=== PATIENT | male | born 1995 | race Caucasian/White ===

== ENCOUNTER 2024-04-14 20:02 | Emergency (ER) | payer BC, SELFPAY ==
[2024-04-14 20:12] VITALS: BP 102/86; PULSE 127; TEMP 37.6; O2SAT 95; BMI 47.2
--- NOTE | 2024-04-14 20:18 | ED_ITS ---
HPI - URI/Sore Throat General Chief Complaint: Upper Respiratory Infection Stated Complaint: Upper Respiratory Infection Time Seen by Provider: 04/14/24 20:13 Source: patient Limitations: no limitations History of Present Illness HPI Narrative: ill for past week with cough. Was seen at Urgent care and diagnosed with pneumonia and prescribed Augmentin. States she is still short of breath with exertion and has a fever. Does not smoke cigarettes. No nausea or vomiting or chest pain Related Data Allergies Allergy/AdvReac Type Severity Reaction Status Date / Time No Known Drug Allergies Allergy Verified 04/14/24 20:12 Review of Systems ROS Status of ROS 10 or more systems reviewed and unremark able except as noted in history and below PFSH PFSH Social History Little interest or pleasure in doing things: not at all Feeling down, depressed, or hopeless: not at all Exam Constitutional Vital Signs, click to edit/add: Last Vital Signs Temp 99.7 F 04/14/24 20:12 Pulse 121 H 04/14/24 20:56 Resp 20 04/14/24 20:56 BP 102/86 04/14/24 20:12 Pulse Ox 98 04/14/24 20:56 O2 Del Method Room Air 04/14/24 20:56 Common normals: no apparent distress, average body habitus, oriented x3, no limitations, healthy appearing, alert and well nourished [facility] Common normals: normocephalic and head/scalp atraumatic Eye Common normals: PERRL and EOMs intact bilaterally Respiratory Other: faint wheeze left chest Cardio Common normals: S1 normal heart sound and S2 normal heart sound Rate: tachycardic GI Common normals: Normal to inspection, nondistended, normoactive bowel sounds present, soft to palpation and non-tender Extremity Common normals: normal to inspection and full ROM Neuro Common normals: oriented x3, CN's II-XII intact bilaterally, moves all extrem ities and no focal motor deficits Psych Appearance: grossly normal Course Vital Signs Vital signs: Vital Signs Temperature 99.7 F 04/14/24 20:12 Pulse Rate 127 H 04/14/24 20:12 Respiratory Rate 18 04/14/24 20:12 Blood Pressure 102/86 04/14/24 20:12 Pulse Oximetry 95 04/14/24 20:12 Oxygen Delivery Method Room Air 04/14/24 20:12 Temperature 99.7 F 04/14/24 20:12 Pulse Rate 121 H 04/14/24 20:56 Respiratory Rate 20 04/14/24 20:56 Blood Pressure 102/86 04/14/24 20:12 Pulse Oximetry 98 04/14/24 20:56 Oxygen Delivery Method Room Air 04/14/24 20:56 MDM - URI/Sore Throat MDM Narrative Medical decision making narrative: patient states recently seen at urgent care and diagnosed with pneumonia and prescribed Augmentin. states she still has been experiencing fever and dyspnea with exertion. RA pulse ox 98%. has mild wheeze on exam. cxray clear. low grade temp. COVID 19 and influenza neg. Patient treated with albuterol NMT and solumedrol. Feeling better. discharged home with prednisone and albuterol inhaler and advised to followup with her doctor for recheck Lab Data Labs: Lab Results 04/14/24 04/14/24 Range/Units 20:30 22:03 WBC 9.4 (4.0-11.0) 10^3/uL RBC 4.64 L (4.70-6.10) 10^6/uL Hgb 12.2 L (14.0-18.0) g/dL Hct 38.6 L (42.0-54.0) % MCV 83.2 (80.0-94.0) fL MCH 26.3 (25.9-34.0) pg MCHC 31.6 (29.9-35.2) g/dL RDW 14.1 (11.0-15.0) % Plt Count 355 (150-450) 10^3/uL MPV 8.6 L (9.5-13.5) fL Neut % (Auto) 67.7 (43.0-75.0) % Lymph % (Auto) 17.2 L (20.5-60.0) % [place] % (Auto) 8.0 (1.7-12.0) % Eos % (Auto) 6.4 (0.9-7.0) % Baso % (Auto) 0.5 (0.2-2.0) % Neut # (Auto) 6.4 (1.4-6.5) 10^3/uL Lymph # (Auto) 1.6 (1.2-3.8) 10^3/uL [place] # (Auto) 0.8 (0.3-0.8) 10^3/uL Eos # (Auto) 0.6 (0.0-0.7) 10^3/uL Baso # (Auto) 0.1 (0.0-0.1) 10^3/uL Abs Immat Gran (auto) 0.02 (0.00-0.03) 10^3/uL Imm/Tot Granulo (auto) 0.2 (0.0-0.5) % Sodium 141 (136-145) mmol/L Potassium 3.5 (3.5-5.1) mmol/L Chloride 103 (98-107) mmol/L Carbon Dioxide 24.7 (21.0-32.0) mmol/L Anion Gap 16.8 BUN 11.0 (7.0-18.0) mg/dL Creatinine 0.99 (0.70-1.30) mg/dL Est GFR ( Amer) >60 (>=60 mL/min/1.73m^2) Est GFR (Non-Af Amer) >60 (>=60 mL/min/1.73m^2) BUN/Creatinine Ratio 11.1 Glucose 112 H (74-106) mg/dL Calcium 9.4 (8.5-10.1) mg/dL Influenza Type A Ag Negative Influenza Type B Ag Negative SARS-CoV-2 Ag (CV2AG) Negative (NEGATIVE) Imaging Data Chest x-ray: Radiologist's impression: ITS Impressions Chest X-Ray 04/14/24 20:18 IMPRESSION: No acute cardiopulmonary findings. Electronically authenticated by: ANGEL MCNAMARA Date: 04/14/2024 21:41 Discharge Plan Discharge Chief Complaint: Upper Respiratory Infection Clinical Impression: Upper respiratory infection, RAD (reactive airway disease) Patient Disposition: Home, Self-Care Print Language: [place] Instructions: Upper Respiratory Infection (ED), Wheezing (ED) Additional Instructions: follow up with your family doctor next week for recheck Referrals: Physician,Non-Staff, MD [Primary Care Provider] - 1 week
--- NOTE | 2024-04-14 20:18 | XR_ITS ---
The [address] [address] Patient Name: FREDDY BRODY MRN: [id number] date: 1995 Sex: M Assigned Patient Location: ER Current Patient Location: ER Accession/Order Number: [id number] Exam Date: 04/14/2024 20:30 Report Date: 04/14/2024 21:41 At the request of: ASHER GARCIA Procedure: XR chest 2V EXAM: XR chest 2V , 04/14/2024 HISTORY: cough COMPARISON: None. TECHNIQUE: X-rays of the chest, frontal and lateral views in upright position. FINDINGS: Cardiac silhouette within normal limits. The lungs and costophrenic angles are clear. No hilar or mediastinal lymph node. No acute osseous findings. XR/XR chest 2V IMPRESSION: No acute cardiopulmonary findings. Electronically authenticated by: ANGEL MCNAMARA Date: 04/14/2024 21:41
[2024-04-14 20:35] LABS: Basophils Absolute Auto 0.1 10^3/uL (0.0-0.1); Basophils Percent Auto 0.5 % (0.2-2.0); Eosinophils Absolute Auto 0.6 10^3/uL (0.0-0.7); Eosinophils Percent Auto 6.4 % (0.9-7.0); Hematocrit 38.6 % (42.0-54.0); Hemoglobin 12.2 g/dL (14.0-18.0); Immature Granulocytes Abs Auto 0.02 10^3/uL (0.00-0.03); Immature Granulocytes Pct Auto 0.2 % (0.0-0.5); Lymphocytes Absolute Auto 1.6 10^3/uL (1.2-3.8); Lymphocytes Percent Auto 17.2 % (20.5-60.0); Mean Corpuscular HGB Conc 31.6 g/dL (29.9-35.2); Mean Corpuscular Hemoglobin 26.3 pg (25.9-34.0); Mean Corpuscular Volume 83.2 fL (80.0-94.0); Mean Platelet Volume 8.6 fL (9.5-13.5); Monocytes Absolute Auto 0.8 10^3/uL (0.3-0.8); Neutrophils Absolute Auto 6.4 10^3/uL (1.4-6.5); Neutrophils Percent Auto 67.7 % (43.0-75.0); Platelet Count 355 10^3/uL (150-450); Red Blood Count 4.64 10^6/uL (4.70-6.10); Red Cell Distribution Width 14.1 % (11.0-15.0); White Blood Count 9.4 10^3/uL (4.0-11.0)
[2024-04-14 20:45] LABS: Anion Gap 16.8; BUN Creatinine Ratio 11.1; Calcium 9.4 mg/dL (8.5-10.1); Carbon Dioxide 24.7 mmol/L (21.0-32.0); Chloride 103 mmol/L (98-107); Estimated GFR (African America >60 (>=60 mL/min/1.73m^2); Estimated GFR (Non-African Ame >60 (>=60 mL/min/1.73m^2); Glucose 112 mg/dL (74-106); Potassium 3.5 mmol/L (3.5-5.1); Sodium 141 mmol/L (136-145)
[2024-04-14 20:48] VITALS: PULSE 114; O2SAT 97
[2024-04-14] MEDS: ALBUTEROL SULFATE 2.5 MG/3 ML VIAL NEB IH (20:48)
--- NOTE | 2024-04-14 20:48 | RESP.RT ---
faint wheezes heard before tx
[2024-04-14 20:56] VITALS: PULSE 121; O2SAT 98
[2024-04-14] MEDS: METHYLPREDNISOLONE SOD SUCC PF 125 MG/2 ML VIAL IVP (21:29)
[2024-04-14 22:18] LABS: Influenza Virus A Antigen Negative; Influenza Virus B Antigen Negative; Internal Control Within Normal Limits
[2024-04-14 22:19] LABS: Internal Control Within Normal Limits; SARS-CoV-2 Ag NEGATIVE (NEGATIVE)
== END 2024-04-14 22:49 | disposition home or self-care (01) ==
PROVIDERS: Emergency Provider Internal Medicine
DX: J06.9 Acute upper respiratory infection, unspecified (principal); R50.9 Fever, unspecified; J45.909 Unspecified asthma, uncomplicated
CPT/HCPCS: 36415; 71046; 80048; 85025; 87804; 87811; 94640; 99284; J2919